=== PATIENT | female | born 1995 ===

== ENCOUNTER 2018-03-22 11:59 | Emergency (ER) | payer SELFPAY ==
--- NOTE | 2018-03-22 12:10 | UC ---
HPI BURN - HPI Summary HPI Summary: 22 yo female presents with burn to right hand. She tells me that she was microwaving a mug and reached to grab it when it was done and sustained a burn to her right 2nd and 3rd fingers. She applied aloe to the area and came to urgent care. Tetanus is up-to-date. - History of Current Complaint Chief Complaint: [place] Stated Complaint: SANTOS ON HAND Time Seen by Provider: 03/22/18 12:10 Hx Obtained From: Patient Onset Severity: Severe Current Severity: Moderate Pain Intensity: 8 Pain Scale Used: 0-10 Numeric - Allergy/Home Medications Allergies/Adverse Reactions: Allergies Allergy/AdvReac Type Severity Reaction Status Date / Time No Known Allergies Allergy Verified 03/22/18 12:07 Home Medications: Home Medications Ethinyl Estradiol/Drospirenone [Dacia 28 Tablet] 1 each PO 03/22/18 [History] PMH/Surg Hx/FS Hx/Imm Hx - Additional Past Medical History Additional PMH: None Previously Healthy: Yes - Surgical History Surgical History: Yes Surgery Procedure, Year, and Place: septoplasty - Family History Known Family History: Positive: None - Social History Occupation: Student Lives: Dormitory/Roommates Alcohol Use: Weekly Substance Use Type: None Smoking Status (MU): Never Smoked Tobacco Review of Systems Constitutional: Negative Skin: Other - Burn right hand Respiratory: Negative Cardiovascular: Negative Neurovascular: Negative Musculoskeletal: Negative Neurological: Negative Psychological: Negative All Other Systems Reviewed And Are Negative: Yes Physical Exam - Summary Physical Exam Summary: GENERAL: NAD. WDWN. No pain distress. SKIN: Right 2nd finger with 2nd deg burn to ulnar aspect overlying proximal phalanx and intermed phalanx with blister formation. Right 3rd finger with 2nd deg burn overlying radial aspect of proximal phalanx with blister formation. Santos spare joint lines. No streaking, bleeding, or drainage. NECK: Supple. Nontender. CHEST: No accessory muscle use. Breathing comfortably and in no distress. CV: Pulses intact. Cap refill <2seconds MSK: Right hand and all fingers FROM. NEURO: Alert. CN II-XII grossly intact. PSYCH: Age appropriate behavior. Triage Information Reviewed: Yes Vital Signs: Initial Vital Signs Temp 98.5 F 03/22/18 12:04 Pulse 73 03/22/18 12:04 Resp 18 03/22/18 12:04 BP 118/54 03/22/18 12:04 Pulse Ox 98 03/22/18 12:04 Vital Signs Reviewed: Yes Burn Calculation - [place] Formula for Fluid Resuscitation Weight: 48.534 kg 24 -Hour Fluid Replacement: 0.0 Course/Dx Burn - Course Course Of Treatment: 2nd degree burn to right hand. Silvadene and gauze bandage applied. Advised to change dressing daily until well healed. Tylenol #3 for pain. Apply ice to the area daily. - Diagnoses Clinic Provider Diagnoses: 2nd degree burn right 2nd and 3rd fingers Discharge - Sign-Out/Discharge Documenting (check all that apply): Patient Departure All imaging exams completed and their final reports reviewed: No Studies - Discharge Plan Condition: Stable Disposition: HOME Prescriptions: Acetaminophen with Codeine [Acetaminophen/Codeine Darcy 300-30 mg] 1 tab PO Q6H PRN #12 tab MDD 4 PRN Reason: Pain Patient Education Materials: Second Degree Burn (ED), Acute Wound Care (ED) Referrals: No Primary Care Phys,NOPCP [Primary Care Provider] - Additional Instructions: If you develop a fever, shortness of breath, chest pain, new or worsening symptoms - please call your PCP or go to the ED. 1) Apply silvadene cream and keep covered for the next 2-3 days then may use aloe and covered until healed. - Billing Disposition and Condition Condition: STABLE Disposition: Home
[2018-03-22] MEDS ORDERED: Silver Sulfadiazine 1%* 20 GM TOPICAL ONE (12:17)
== END 2018-03-22 12:36 | disposition home or self-care (01) ==
LOC: UCEAST 11:59
DX: T23.231A Burn of second degree of multiple right fingers (nail), not including thumb, initial encounter (principal); X19.XXXA Contact with other heat and hot substances, initial encounter; Y92.9 Unspecified place or not applicable
CPT/HCPCS: 99202; A9270-GY; G0463